=== PATIENT | male | born 1965 | race Caucasian/White ===

== ENCOUNTER 2017-10-06 17:16 | Observation (INO) | payer MEDICAID ==
[~2017-10-06] VITALS: Ht 170.2 cm; Wt 89.0 kg
[~2017-10-06 17:16] MED LIST: METH4TAB81 PO
[2017-10-06 17:40] LABS: CLARITY,URINE CLEAR (Clear); COLOR,URINE YELLOW (Yellow); GLUCOSE, URINE NEGATIVE (Neg); KETONES,URINE NEGATIVE (Neg); LEUKOCYTE ESTERASE ,URINE NEGATIVE (Neg); NITRITES, URINE NEGATIVE (Neg); OCCULT BLOOD,URINE LARGE (Neg); PROTEIN,URINE TRACE mg/dl (Neg); UROBILINOGEN,URINE 0.2 E.U/dL (0.2-1.0)
[2017-10-06 17:41] LABS: UA COLLECTION TYPE CLN CATCH MIDSTREAM
[2017-10-06 17:45] LABS: BASOPHILS # (AUTO) 0.1 X10'3 (0-0.2); BASOPHILS % (AUTO) 0.8 % (0-1); EOSINOPHILS # (AUTO) 0.1 X10'3 (0-0.9); HEMATOCRIT 46.3 % (42.0-52.0); HEMOGLOBIN 16.1 g/dl (14.0-17.9); LYMPHOCYTES # (AUTO) 2.1 X10'3 (1.1-4.8); LYMPHOCYTES % (AUTO) 17.5 % (21-51); MEAN CORPUSCULAR HEMOGLOBIN 31.1 PG (27.0-31.0); MEAN CORPUSCULAR HGB CONC 34.7 % (33.0-36.5); MEAN CORPUSCULAR VOLUME 89.7 FL (78-98); MEAN PLATELET VOLUME 7.7 FL (7.4-10.4); MONOCYTES # (AUTO) 0.7 X10'3 (0-0.9); MONOCYTES % (AUTO) 5.5 % (2-12); NEUTROPHILS # (AUTO) 8.8 X10'3 (1.8-7.7); NEUTROPHILS % (AUTO) 75.2 % (42-75); PLATELET COUNT 299 X10'3 (140-440); RED BLOOD COUNT 5.16 X10'6 (4.70-6.10); RED CELL DISTRIBUTION WIDTH 13.3 % (11.5-14.5); WHITE BLOOD COUNT 11.8 X10'3 (4.5-11.0)
[2017-10-06] MEDS ORDERED: normal saline 1000ML IV soln IV ONE (17:45)
[2017-10-06] MEDS ORDERED: morphine 4 MG/ML inj SYRINge IV ONE (17:45)
[2017-10-06 17:49] LABS: BACTERIA,URINE FEW /HPF (Neg); MUCUS STRANDS MANY /LPF (Neg); RBC,URINE 50-100 /HPF (0-2); SQUAMOUS EPITHELIAL CELL,UR NONE SEEN /LPF (FEW); WBC,URINE 0-4 /HPF (0-4)
[2017-10-06 17:50] LABS: CAL OXALATE CRYSTALS FEW /HPF (NEGATIVE)
[2017-10-06 17:53] LABS: INR 0.9 INR; PROTHROMBIN TIME 9.4 SECONDS (9.0-12.0)
[2017-10-06 17:59] LABS: ALANINE AMINOTRANSFERASE 36 U/L (12-78); ALBUMIN 4.2 G/DL (3.4-5.0); ALBUMIN/GLOBULIN RATIO 1.2 (1.1-1.5); ALKALINE PHOSPHATASE 76 IU/L (46-116); ANION GAP 9 (8-16); ASPARTATE AMINO TRANSFERASE 20 U/L (10-37); BILIRUBIN,TOTAL 0.6 MG/DL (0.1-1.0); BLOOD UREA NITROGEN 17 MG/DL (7-18); BUN/CREATININE RATIO 13.5 (5.4-32.0); CALCIUM 9.6 MG/DL (8.5-10.1); CHLORIDE 102 MMOL/L (99-107); CREATININE 1.26 MG/DL (0.60-1.10); GLUCOSE 120 MG/DL (70-104); POTASSIUM 4.1 MMOL/L (3.5-5.1); SODIUM 139 MMOL/L (135-145); TOTAL CARBON DIOXIDE 28.1 MMOL/L (24-32); TOTAL PROTEIN 7.6 G/DL (6.4-8.2); eGFR 60 ML/MIN
[2017-10-06] MEDS ORDERED: proCHLORperazine 10 MG/2 ml inj IV ONE (18:05)
[2017-10-06] MEDS ORDERED: iohexol 300mg/ml 100ml inj. ONE (18:05)
[2017-10-06] MEDS ORDERED: HYDROmorphone 1 mg/ml syringe IV ONE (18:35)
[2017-10-06] MEDS ORDERED: ketorolac trometh. 30mg/ml inj. IV ONE (19:30)
[2017-10-06] MEDS ORDERED: ciprofloxacin lact 400MG/200ML 200 ML IV ONE (20:07)
[2017-10-06] MEDS ORDERED: tamsulosin 0.4mg capsule PO ONE (20:20)
[2017-10-06] MEDS ORDERED: acetaminophen 325mg tablet PO PRN (21:05)
[2017-10-06] MEDS ORDERED: potassium Cl 40MEQ/NS 500ml 500 ML IV PRN ×2 (21:05)
[2017-10-06] MEDS ORDERED: magnesium 1gm/100ml D5W IVPB 100 ML IV PRN (21:05)
[2017-10-06] MEDS ORDERED: potassium Cl 20 mEq SR tablet PO PRN ×2 (21:05)
[2017-10-06] MEDS ORDERED: magnesium hydroxide 30ml (MOM) UD suspension PO PRN (21:05)
[2017-10-06] MEDS ORDERED: magnesium 4gm in 100ml NS 100 ML IV PRN (21:05)
[2017-10-06] MEDS ORDERED: ipratropium/albuterol 3ml nebule NEB PRN (21:05)
[2017-10-06] MEDS ORDERED: morphine 4 MG/ML inj SYRINge IV PRN ×2 (21:05)
[2017-10-06] MEDS ORDERED: ondansetron/PF 4mg/2ml inj IV PRN (21:05)
[2017-10-06] MEDS ORDERED: CHOL10002 PO (21:19)
[2017-10-06] MEDS ORDERED: ATOR40TA PO (21:19)
[2017-10-06] MEDS ORDERED: PANT-47 PO (21:19)
[2017-10-06] MEDS ORDERED: METO-384 PO (21:19)
[2017-10-06] MEDS ORDERED: LISI40TA4 PO (21:19)
[2017-10-06] MEDS: normal saline 1000ml 1,000 ML IV SCH (22:40)
[2017-10-07] VITALS: BP 148/78
[2017-10-07] MEDS ORDERED: ketorolac trometh. 30mg/ml inj. IV PRN (00:15)
[2017-10-07] MEDS ORDERED: HYDROmorphone 1 mg/ml syringe IV PRN (00:15)
[2017-10-07] MEDS: heparin, porcine 5000 units/ml vial SQ SCH ×3 (00:32→20:12)
[2017-10-07] MEDS: HYDROmorphone 1 mg/ml syringe IV PRN ×2 (00:33→05:52)
[2017-10-07 05:31] LABS: BASOPHILS % (AUTO) 0.3 % (0-1); EOSINOPHILS # (AUTO) 0.1 X10'3 (0-0.9); EOSINOPHILS % (AUTO) 0.7 % (0-6); HEMATOCRIT 39.3 % (42.0-52.0); HEMOGLOBIN 13.8 g/dl (14.0-17.9); LYMPHOCYTES # (AUTO) 2.7 X10'3 (1.1-4.8); LYMPHOCYTES % (AUTO) 24.4 % (21-51); MEAN CORPUSCULAR HEMOGLOBIN 31.5 PG (27.0-31.0); MEAN CORPUSCULAR HGB CONC 35.1 % (33.0-36.5); MEAN CORPUSCULAR VOLUME 89.5 FL (78-98); MEAN PLATELET VOLUME 8.4 FL (7.4-10.4); MONOCYTES # (AUTO) 0.8 X10'3 (0-0.9); MONOCYTES % (AUTO) 7.3 % (2-12); NEUTROPHILS # (AUTO) 7.5 X10'3 (1.8-7.7); NEUTROPHILS % (AUTO) 67.3 % (42-75); PLATELET COUNT 257 X10'3 (140-440); RED BLOOD COUNT 4.39 X10'6 (4.70-6.10); RED CELL DISTRIBUTION WIDTH 12.8 % (11.5-14.5); WHITE BLOOD COUNT 11.2 X10'3 (4.5-11.0)
[2017-10-07 05:43] LABS: ALANINE AMINOTRANSFERASE 31 U/L (12-78); ALBUMIN 3.2 G/DL (3.4-5.0); ALBUMIN/GLOBULIN RATIO 1.1 (1.1-1.5); ALKALINE PHOSPHATASE 65 IU/L (46-116); ANION GAP 9 (8-16); ASPARTATE AMINO TRANSFERASE 18 U/L (10-37); BILIRUBIN,TOTAL 0.5 MG/DL (0.1-1.0); BLOOD UREA NITROGEN 22 MG/DL (7-18); BUN/CREATININE RATIO 19.5 (5.4-32.0); CHLORIDE 105 MMOL/L (99-107); CHOL/HDL RATIO 5.9 (0.00-4.99); CHOLESTEROL 205 MG/DL (0-200); CREATININE 1.13 MG/DL (0.60-1.10); GLUCOSE 100 MG/DL (70-104); HDL CHOLESTEROL 35 MG/DL (35-60); LDL CHOLESTEROL 137 MG/DL (50-100); POTASSIUM 3.9 MMOL/L (3.5-5.1); SODIUM 139 MMOL/L (135-145); TOTAL CARBON DIOXIDE 25.4 MMOL/L (24-32); TOTAL PROTEIN 6.1 G/DL (6.4-8.2); TRIGLYCERIDES 253 MG/DL (20-135); eGFR 68 ML/MIN
[2017-10-07 07:00] VITALS: BP 137/78
[2017-10-07] MEDS: normal saline 1000ml 1,000 ML IV SCH (07:36)
[2017-10-07] MEDS: K and/or MAG REPLACEMENT MC SCH (07:38)
[2017-10-07] MEDS ORDERED: ciprofloxacin lact 400MG/200ML 200 ML IV SCH (08:00)
[2017-10-07 09:48] VITALS: BP 131/78
[2017-10-07 11:00] VITALS: BP 152/91
[2017-10-07] MEDS ORDERED: HYDROcodone/acetaminophen 10/325mg tab PO PRN (13:20)
[2017-10-07] MEDS: furosemide 20 MG/2 ML vial IV SCH ×2 (13:35→20:13)
[2017-10-07] MEDS: potassium cl 20mEq in 1/2 NS 1,000 ML IV SCH ×2 (16:38→20:41)
[2017-10-07] MEDS: potassium Cl 20 mEq SR tablet PO SCH (17:13)
[2017-10-07 20:00] VITALS: BP 146/83
[2017-10-07] MEDS: lactobacillus rhamnosus 10,000 MMU CELLS/CAPSULE PO SCH (20:14)
[2017-10-07] MEDS: vitamin D (cholecalciferol) 1,000 unit tablet PO SCH (20:16)
[2017-10-07] MEDS ORDERED: docusate sod 250mg capsule PO SCH (21:00)
[2017-10-07] MEDS ORDERED: tamsulosin 0.4mg capsule PO SCH (21:00)
[2017-10-08] VITALS: BP 147/86
[2017-10-08] MEDS: potassium cl 20mEq in 1/2 NS 1,000 ML IV SCH (00:41)
[2017-10-08 04:59] LABS: BASOPHILS % (AUTO) 0.6 % (0-1); EOSINOPHILS # (AUTO) 0.2 X10'3 (0-0.9); EOSINOPHILS % (AUTO) 2.7 % (0-6); HEMATOCRIT 40.9 % (42.0-52.0); HEMOGLOBIN 14.4 g/dl (14.0-17.9); LYMPHOCYTES # (AUTO) 2.9 X10'3 (1.1-4.8); LYMPHOCYTES % (AUTO) 41.1 % (21-51); MEAN CORPUSCULAR HEMOGLOBIN 31.7 PG (27.0-31.0); MEAN CORPUSCULAR HGB CONC 35.3 % (33.0-36.5); MEAN CORPUSCULAR VOLUME 89.7 FL (78-98); MEAN PLATELET VOLUME 8.2 FL (7.4-10.4); MONOCYTES # (AUTO) 0.6 X10'3 (0-0.9); MONOCYTES % (AUTO) 7.9 % (2-12); NEUTROPHILS # (AUTO) 3.4 X10'3 (1.8-7.7); NEUTROPHILS % (AUTO) 47.7 % (42-75); PLATELET COUNT 250 X10'3 (140-440); RED BLOOD COUNT 4.56 X10'6 (4.70-6.10); RED CELL DISTRIBUTION WIDTH 13.2 % (11.5-14.5); WHITE BLOOD COUNT 7.2 X10'3 (4.5-11.0)
[2017-10-08 05:22] LABS: ALANINE AMINOTRANSFERASE 13 U/L (12-78); ALBUMIN 3.4 G/DL (3.4-5.0); ALBUMIN/GLOBULIN RATIO 1.1 (1.1-1.5); ALKALINE PHOSPHATASE 67 IU/L (46-116); ANION GAP 7 (8-16); ASPARTATE AMINO TRANSFERASE 20 U/L (10-37); BILIRUBIN,TOTAL 0.4 MG/DL (0.1-1.0); BLOOD UREA NITROGEN 13 MG/DL (7-18); BUN/CREATININE RATIO 11.6 (5.4-32.0); CALCIUM 8.7 MG/DL (8.5-10.1); CHLORIDE 104 MMOL/L (99-107); CREATININE 1.12 MG/DL (0.60-1.10); GLUCOSE 98 MG/DL (70-104); MAGNESIUM 1.9 MG/DL (1.5-2.4); POTASSIUM 3.8 MMOL/L (3.5-5.1); SODIUM 140 MMOL/L (135-145); TOTAL CARBON DIOXIDE 29.5 MMOL/L (24-32); TOTAL PROTEIN 6.4 G/DL (6.4-8.2); eGFR 69 ML/MIN
[2017-10-08 07:23] VITALS: BP 145/90
[2017-10-08] MEDS ORDERED: metoprolol succinate 25mg (24-HOUR) SR. Tablet PO SCH (08:00)
[2017-10-08] MEDS ORDERED: atorvastatin 20mg tablet PO SCH (08:00)
[2017-10-08] MEDS: K and/or MAG REPLACEMENT MC SCH (08:00)
[2017-10-08] MEDS ORDERED: pantoprazole 40mg Tablet.DR PO SCH (08:00)
[2017-10-08] MEDS: furosemide 20 MG/2 ML vial IV SCH (08:06)
[2017-10-08] MEDS: heparin, porcine 5000 units/ml vial SQ SCH (08:07)
[2017-10-08] MEDS: lactobacillus rhamnosus 10,000 MMU CELLS/CAPSULE PO SCH (08:07)
[2017-10-08] MEDS: potassium Cl 20 mEq SR tablet PO SCH (08:07)
[2017-10-08] MEDS: vitamin D (cholecalciferol) 1,000 unit tablet PO SCH (08:08)
[2017-10-08] MEDS ORDERED: HYDR-3972 PO (10:00)
[2017-10-08] MEDS ORDERED: TAMS0.4C32 PO (10:00)
[2017-10-08] MEDS ORDERED: DOCU250C96 PO (10:00)
[2017-10-08 12:29] VITALS: BP 157/97
[2017-10-10] MEDS ORDERED: HYDR-3965 PO (19:11)
[2017-10-10] MEDS ORDERED: FLO0.4C PO (19:11)
[2017-10-10] MEDS ORDERED: CIPR250T4 PO (19:44)
== END 2017-10-08 12:25 | disposition home or self-care (01) ==
LOC: ER 17:17 → ED HOLD 21:01 → SUR 3N 22:20
PROVIDERS: ADMIT Family Medicine; ATTEND Internal Medicine
DX: N13.2 Hydronephrosis with renal and ureteral calculous obstruction (principal); E78.5 Hyperlipidemia, unspecified; I10 Essential (primary) hypertension; F17.210 Nicotine dependence, cigarettes, uncomplicated; E78.00 Pure hypercholesterolemia, unspecified; J44.9 Chronic obstructive pulmonary disease, unspecified; I73.9 Peripheral vascular disease, unspecified; J18.9 Pneumonia, unspecified organism
CPT/HCPCS: 36415; 71045; 74178; 80053; 80061; 81001; 82948; 83605; 83735; 85025; 85610; 87040; 87070; 94760; 96361; 96365; 96366; 96372; 96375; 96376; 99285; G0378; J0744; J0780; J1170; J1644; J1885; J1940; J2270; J2405; J7030; Q9967

== ENCOUNTER 2020-10-16 00:35 | Emergency (ER) | payer MEDICAID, OTHER ==
[~2020-10-16] VITALS: Ht 170.2 cm; Wt 85.0 kg
[~2020-10-16 00:35] MED LIST changes: +ATOR40TA PO; +CHOL10002 PO; +DOCU-338 PO; +HYDR-3972 PO; +LISI40TA13 PO; -METH4TAB81 PO; +METO-384 PO; +PANT-47 PO; +TAMS0.4C32 PO
[2020-10-16 00:37] VITALS: BP 139/88
[2020-10-16] MEDS ORDERED: LIDOcaine 1% w/epiNEPHrine 1:200,000 30ml vial SQ ONE (02:55)
[2020-10-16] MEDS ORDERED: TETanus/Pertussis (Acell)/Diphther VAC/PF (Tdap-Adult) 0.5ml syringe IMVAC ONE (02:55)
[2020-10-16] MEDS ORDERED: LIDOcaine 1% W/epiNEPHrine 1:200,000 10ml vial IJ ONE (03:00)
[2020-10-16] MEDS ORDERED: CEPH-585 PO (03:07)
[2020-10-16] MEDS ORDERED: LIDOcaine 1% w/epiNEPHrine 1:200,000 30ml vial IJ ONE (03:10)
== END 2020-10-16 03:47 | disposition home or self-care (01) ==
LOC: ER 00:35
DX: S61.412A Laceration without foreign body of left hand, initial encounter (principal); E78.00 Pure hypercholesterolemia, unspecified; I10 Essential (primary) hypertension; Z87.442 Personal history of urinary calculi; W26.8XXA Contact with other sharp object(s), not elsewhere classified, initial encounter; Y93.89 Activity, other specified; Y92.89 Other specified places as the place of occurrence of the external cause; Y99.8 Other external cause status
CPT/HCPCS: 12002; 90471; 90715; 99283

== ENCOUNTER 2022-12-25 07:51 | Emergency (ER) | payer OTHER ==
[~2022-12-25] VITALS: Ht 175.3 cm; Wt 86.4 kg
[~2022-12-25 07:51] MED LIST changes: -DOCU-338 PO; +DOCU250C96 PO
[2022-12-25] MEDS ORDERED: piperacillin/tazo 3.375gm/50ml 50 ML IV STA (08:50)
--- NOTE | 2022-12-25 09:12 | NUR ---
Introduced role and self to patient. Patient updated on plan for PIV start, IV antiobiotics and blood draw.
[2022-12-25 09:24] LABS: BASOPHILS # (AUTO) 0.1 X10'3 (0-0.2); BASOPHILS % (AUTO) 0.8 % (0-1); EOSINOPHILS # (AUTO) 0.6 X10'3 (0-0.9); EOSINOPHILS % (AUTO) 6.2 % (0-6); HEMATOCRIT 46.9 % (42.0-52.0); LYMPHOCYTES # (AUTO) 1.8 X10'3 (1.1-4.8); LYMPHOCYTES % (AUTO) 17.9 % (21-51); MEAN CORPUSCULAR HEMOGLOBIN 31.1 PG (27.0-31.0); MEAN CORPUSCULAR HGB CONC 34.2 g/dL (33.0-36.5); MEAN CORPUSCULAR VOLUME 91.1 FL (78-98); MEAN PLATELET VOLUME 7.5 FL (7.4-10.4); MONOCYTES # (AUTO) 0.9 X10'3 (0-0.9); MONOCYTES % (AUTO) 9.3 % (2-12); NEUTROPHILS # (AUTO) 6.6 X10'3 (1.8-7.7); NEUTROPHILS % (AUTO) 65.8 % (42-75); PLATELET COUNT 299 X10'3 (140-440); RED BLOOD COUNT 5.15 X10'6 (4.70-6.10); RED CELL DISTRIBUTION WIDTH 13.3 % (11.5-14.5); WHITE BLOOD COUNT 10.1 X10'3 (4.5-11.0)
[2022-12-25 09:45] LABS: ALANINE AMINOTRANSFERASE 40 U/L (12-78); ALBUMIN 3.4 G/DL (3.4-5.0); ALBUMIN/GLOBULIN RATIO 0.9 (1.1-1.5); ALKALINE PHOSPHATASE 73 IU/L (46-116); ANION GAP 7 (8-16); ASPARTATE AMINO TRANSFERASE 19 U/L (10-37); BILIRUBIN,TOTAL 0.6 MG/DL (0.1-1.0); BLOOD UREA NITROGEN 16 MG/DL (7-18); CHLORIDE 103 MMOL/L (99-107); CREATININE 0.94 MG/DL (0.60-1.10); GLUCOSE 102 MG/DL (70-104); MAGNESIUM 2.1 MG/DL (1.5-2.4); POTASSIUM 4.2 MMOL/L (3.5-5.1); SODIUM 136 MMOL/L (135-145); TOTAL CARBON DIOXIDE 26.4 MMOL/L (24-32); TOTAL PROTEIN 7.1 G/DL (6.4-8.2); eCRCL 87 ML/MIN; eGFR 83 ML/MIN
[2022-12-25] MEDS ORDERED: HYDR28CR14 TOP (10:41)
[2022-12-25] MEDS ORDERED: PRED20TA PO (10:56)
[2022-12-25 11:30] VITALS: BP 166/114; PULSE 89; RESP 18; TEMP 98; O2SAT 98
== END 2022-12-25 11:35 | disposition home or self-care (01) ==
LOC: ER 07:52
DX: L23.7 Allergic contact dermatitis due to plants, except food (principal)
CPT/HCPCS: 36415; 71045; 80053; 83605; 83735; 85025; 87040; 93005; 96365; 96366; 99285; J2543